=== PATIENT | male | born 2000 | race Hispanic/Latino ===

== ENCOUNTER 2024-07-18 13:29 | Emergency (ER) | payer OTHER ==
[~2024-07-18] VITALS: Ht 172.7 cm; Wt 90.7 kg
[2024-07-18] MEDS: Morphine 4mg INJECTION 4 MG/ML INJ INJ STA (14:09)
[2024-07-18] MEDS: TETANUS/DIPHTHERIA TOX ADULT 0.5 ML SYR IM STA (14:09)
[2024-07-18] MEDS ORDERED: ULTRAM 50MG50 MG PO (15:00)
[2024-07-18] MEDS ORDERED: AMOX TR-K CLV1 EAC2 PO (15:00)
[2024-07-18 15:50] VITALS: PULSE 63; RESP 16; TEMP 98.9
[2024-07-18 15:58] VITALS: BP 111/79; PULSE 63; RESP 16; TEMP 98.9; O2SAT 99
== END 2024-07-18 15:52 | disposition home or self-care (01) ==
LOC: ER 13:59
DX: S61.452A Open bite of left hand, initial encounter (principal); S61.451A Open bite of right hand, initial encounter; S51.851A Open bite of right forearm, initial encounter; S50.311A Abrasion of right elbow, initial encounter; S80.212A Abrasion, left knee, initial encounter; S80.211A Abrasion, right knee, initial encounter; S90.811A Abrasion, right foot, initial encounter; R20.0 Anesthesia of skin; W54.0XXA Bitten by dog, initial encounter; Y92.89 Other specified places as the place of occurrence of the external cause
CPT/HCPCS: 90471; 90714; 99283; J2270